=== PATIENT | male | born 1945 | race Caucasian/White ===

== ENCOUNTER 2018-02-07 06:07 | Inpatient (IN) | payer OTHER ==
[2018-01-08 10:20] VITALS: BMI 35.4
--- NOTE | 2018-02-06 17:56 | HP ---
Admitting History and Physical - Admission Chief Complaint: Right knee osteoarthritis x years History of Present Illness: 73 year old male presents regarding his right knee. Longstanding history of right knee osteoarthritis. He complains of pain, limited ROM, difficulty ambulating and difficulty with activities of daily living. Patient has failed conservative treatment measures including PO medication, activity modification, exercise programs and injections. At this point, patient wishes to proceed with surgical intervention - right total knee arthroplasty, MAKOplasty. History Source: Patient - Past Medical History Cardiovascular: Yes: Hyperlipdemia Gastrointestinal: Yes: GERD Psych: Yes: Depression Musculoskeletal: Yes: Osteoarthritis - Past Surgical History Additional Past Surgical History: see written history & physical. - Advance Directives Advance Directives: Yes: Health Care Proxy - Smoking History Smoking history: Former smoker Have you smoked in the past 12 months: No If you are a former smoker, when did you quit?: 1990S - Alcohol/Substance Use Hx Alcohol Use: Yes (3X WKLY) Home Medications - Allergies Allergies/Adverse Reactions: Allergies Allergy/AdvReac Type Severity Reaction Status Date / Time Iodinated Contrast- Oral and Allergy Intermediate Hives Verified 02/07/18 06:51 IV Dye No Known Drug Allergies Allergy Verified 02/07/18 06:51 - Home Medications Home Medications: Ambulatory Orders Atorvastatin Ca [Lipitor] 10 mg PO DAILY 01/08/18 Fluoxetine HCl [Prozac] 40 mg PO DAILY 01/08/18 Hydroxyzine HCl 25 mg PO HS PRN 01/08/18 Ibuprofen/Diphenhydramine Cit [Advil Pm Caplet] 1 each PO HS 01/08/18 Pantoprazole Sodium 40 mg PO BID 01/08/18 Review of Systems - Review of Systems Musculoskeletal: reports: Crepitus (right knee), Decreased ROM (right knee), Joint Pain (right knee), Joint Swelling (right knee) Physical Examination Constitutional: Yes: Well Nourished, No Distress Eyes: Yes: Conjunctiva Clear HENT: Yes: Atraumatic, Normocephalic Neck: Yes: Supple Cardiovascular: Yes: Regular Rate and Rhythm Respiratory: Yes: Regular Gastrointestinal: Yes: Soft ...Rectal Exam: Yes: Deferred Musculoskeletal: Yes: Joint Stiffness (right knee), Joint Swelling (right knee) Assessment/Plan 73 year old male presents regarding his right knee. Longstanding history of right knee osteoarthritis. He complains of pain, limited ROM, difficulty ambulating and difficulty with activities of daily living. Patient has failed conservative treatment measures including PO medication, activity modification, exercise programs and injections. At this point, patient wishes to proceed with surgical intervention - right total knee arthroplasty, MAKOplasty. Pros, cons, risks, benefits and alternatives of a right total knee arthroplasty, MAKOplasty - were discussed with the patient at length. Patient confirms his understanding and consents to proceed with a right total knee arthroplasty, MAKOplasty.
[~2018-02-07 06:07] MED LIST: CEFAZOLIN 2 GM in DEXTROSE 5%-WATER - 50 ML IVPB ONE; CELECOXIB 200 MG CAPSULE PO ONE; GABAPENTIN 300 MG CAPSULE (FP) PO ONE; PANTOPRAZOLE 40 MG TABLET (FP) PO ONE; ROPIVICAINE 0.2%/MORPH PF/KETOROLAC - 51ML DISP.SYRINGE IA ONE; TRANEXAMIC ACID 1000 MG/10 ML VIAL IVPUSH ONE; oxyCODONE HCL 10 MG SUSTAINED ACTING TABLET PO ONE
[2018-02-07] MEDS ORDERED: PANTOPRAZOLE 40 MG TABLET (FP) ONE (06:22)
[2018-02-07] MEDS ORDERED: GABAPENTIN 300 MG CAPSULE (FP) ONE (06:22)
[2018-02-07] MEDS ORDERED: oxyCODONE HCL 10 MG SUSTAINED ACTING TABLET ONE (06:22)
[2018-02-07] MEDS ORDERED: CELECOXIB 200 MG CAPSULE ONE (06:23)
[2018-02-07] MEDS ORDERED: MIDAZOLAM HCL 2 MG/2 ML SINGLE DOSE VIAL ONE ×2 (07:03)
[2018-02-07] MEDS ORDERED: BUPIVACAINE LIPOSOME/PF (EXPAREL) 266 MG/20 ML VIAL ONE (07:13)
[2018-02-07] MEDS ORDERED: DEXAMETHASONE SOD PHOSPHATE/PF 10 MG/ML SDV ONE (07:13)
[2018-02-07] MEDS ORDERED: LIDOCAINE HCL/PF 2% SDV 5ML VIAL ONE (07:47)
[2018-02-07] MEDS ORDERED: PROPOFOL 20 ML ONE ×7 (07:48→11:14)
[2018-02-07] MEDS ORDERED: ONDANSETRON 4 MG/2 ML VIAL IVPUSH PRN ×2 (08:01→12:00)
[2018-02-07] MEDS ORDERED: oxyCODONE HCL 5 MG TABLET PO PRN ×2 (08:01)
[2018-02-07] MEDS ORDERED: ceFAZolin SODIUM 1 GM VIAL ONE (08:26)
[2018-02-07] MEDS ORDERED: DEXAMETHASONE SOD PHOSPHATE 4 MG/1 ML VIAL ONE (08:27)
[2018-02-07] MEDS ORDERED: ONDANSETRON 4 MG/2 ML VIAL ONE ×2 (08:27→12:46)
[2018-02-07] MEDS ORDERED: TRANEXAMIC ACID 1000 MG/10 ML VIAL ONE (08:29)
[2018-02-07] MEDS ORDERED: ePHEDrine SULFATE 50 MG/1 ML AMPULE ONE (08:37)
[2018-02-07] MEDS ORDERED: METOPROLOL TARTRATE 5 MG/5 ML VIAL ONE (09:12)
[2018-02-07] MEDS ORDERED: VANCOMYCIN 1,000 MG VIAL (RESTRICTED TO ID ONLY) IVPB ONE ×2 (09:19→11:34)
[2018-02-07] MEDS ORDERED: TRANEXAMIC ACID 1000 MG/10 ML VIAL IVPB ONE ×2 (09:20→11:34)
[2018-02-07] MEDS ORDERED: ROPIVICAINE 0.2%/MORPH PF/KETOROLAC - 51ML DISP.SYRINGE IA ONE ×2 (09:23→11:34)
[2018-02-07] MEDS ORDERED: hydrOXYzine HCL 25 MG TABLET (FP) PO PRN (11:55)
[2018-02-07] MEDS ORDERED: MAG HYDROX/AL HYDROX/SIMETH 30 ML UNIT-DOSE CUP PO PRN (12:00)
[2018-02-07] MEDS ORDERED: LACTATED RINGERS SOLUTION 1,000 ML IV SCH (12:00)
[2018-02-07] MEDS ORDERED: MAGNESIUM HYDROX 2400MG/30ML ORAL SUSPENSION 30 ML CUP PO PRN (12:00)
[2018-02-07] MEDS ORDERED: KETOROLAC TROMETHAMINE 30 MG/1 ML VIAL ONE (12:07)
[2018-02-07] MEDS ORDERED: ACETAMINOPHEN INJECTION 100 ML IVPB ONE (12:08)
[2018-02-07] MEDS ORDERED: traMADol HCL 50 MG TABLET ONE (12:08)
[2018-02-07] MEDS ORDERED: ACETAMINOPHEN 1000 MG/100 ML VIAL (NON FORMULARY) IVPB ONE ×2 (12:10→12:40)
[2018-02-07] MEDS ORDERED: ONDANSETRON 4 MG/2 ML VIAL IVPUSH ONE (12:45)
[2018-02-07] MEDS ORDERED: traMADol HCL 50 MG TABLET PO ONE (13:00)
--- NOTE | 2018-02-07 15:52 | OP ---
Operative Note - Note: Operative Date: 02/07/18 Pre-Operative Diagnosis: Right knee OA Operation: Right TKA Post-Operative Diagnosis: Same as Pre-op Surgeon: Fransico Greco Yarn Twister: Estelle Combs Anesthesia: Spinal Estimated Blood Loss (mls): 200
[2018-02-07] MEDS: traMADol HCL 50 MG TABLET PO SCH ×2 (18:24→20:24)
[2018-02-07] MEDS: KETOROLAC TROMETHAMINE 30 MG/1 ML VIAL IVPUSH SCH ×2 (18:24→20:24)
[2018-02-07] MEDS: CEFAZOLIN 2 GM/D5W 2 GM/50 ML ML IVPB SCH (18:25)
[2018-02-07] MEDS ORDERED: DEXAMETHASONE SOD PHOSPHATE 10 MG/1 ML VIAL IVPB ONE (20:00)
[2018-02-07] MEDS: LACTATED RINGERS SOLUTION 1,000 ML IV SCH (20:23)
[2018-02-07] MEDS: oxyCODONE HCL 10 MG SUSTAINED ACTING TABLET PO SCH ×2 (20:23→21:44)
[2018-02-07] MEDS: ACETAMINOPHEN 325 MG TABLET (FP) PO SCH (20:27)
[2018-02-07] MEDS: CELECOXIB 200 MG CAPSULE PO SCH (21:43)
[2018-02-07] MEDS: PANTOPRAZOLE 40 MG TABLET (FP) PO SCH (21:43)
[2018-02-07] MEDS: ASCORBIC ACID 500 MG TABLET (FP) PO SCH (21:45)
[2018-02-07] MEDS: SENNOSIDES/DOCUSATE COMBO (SENNA PLUS) TABLET (UD) PO SCH (21:45)
[2018-02-07] MEDS: GABAPENTIN 300 MG CAPSULE (FP) PO SCH (21:46)
[2018-02-08] MEDS: traMADol HCL 50 MG TABLET PO SCH ×4 (00:17→17:52)
[2018-02-08] MEDS: KETOROLAC TROMETHAMINE 30 MG/1 ML VIAL IVPUSH SCH ×2 (00:18→06:38)
[2018-02-08] MEDS: ACETAMINOPHEN 325 MG TABLET (FP) PO SCH ×4 (01:58→20:53)
[2018-02-08] MEDS: CEFAZOLIN 2 GM/D5W 2 GM/50 ML ML IVPB SCH (01:58)
[2018-02-08 08:19] LABS: HEMATOCRIT 36.8 % (35.4-49); HEMOGLOBIN 12.6 GM/dl (11.7-16.9); MCHC 34.3 g/dl (32.0-35.9); MEAN CELL VOLUME 84.7 fl (80-96); MEAN PLT VOLUME 8.4 fl (7.5-11.1); PLATELET COUNT 231 K/MM3 (134-434); RBC 4.35 M/mm3 (4.00-5.60); RDW 13.4 % (11.9-15.9); WHITE BLOOD COUNT 13.3 K/mm3 (4.0-10.8)
[2018-02-08 08:29] LABS: ANION GAP 9 (8-16); BLOOD UREA NITROGEN 29 mg/dl (7-18); CALCIUM 8.8 mg/dl (8.4-10.2); CHLORIDE 101 mmol/L (98-107); CO2 25 mmol/L (22-28); CREATININE 1.4 mg/dl (0.6-1.3); GLUCOSE,RANDOM 162 mg/dl (74-106); POTASSIUM 4.8 mmol/L (3.5-5.1); SODIUM 135 mmol/L (136-145)
[2018-02-08] MEDS: PANTOPRAZOLE 40 MG TABLET (FP) PO SCH ×2 (09:41→21:41)
[2018-02-08] MEDS: ASCORBIC ACID 500 MG TABLET (FP) PO SCH ×2 (09:41→21:41)
[2018-02-08] MEDS: FLUoxetine HCL 20 MG CAPSULE (FP) PO SCH (09:41)
[2018-02-08] MEDS: SENNOSIDES/DOCUSATE COMBO (SENNA PLUS) TABLET (UD) PO SCH ×2 (09:42→21:41)
[2018-02-08] MEDS: MULTIVITAMINS (DAILY MVI) TABLET (FP) PO SCH (09:42)
[2018-02-08] MEDS: GABAPENTIN 300 MG CAPSULE (FP) PO SCH ×2 (09:43→21:41)
[2018-02-08] MEDS: CELECOXIB 200 MG CAPSULE PO SCH ×2 (09:43→21:41)
[2018-02-08] MEDS: ASPIRIN 325 MG TABLET PO SCH (09:44)
[2018-02-08] MEDS: ATORVASTATIN CA 10 MG TABLET (FP) PO SCH (09:44)
[2018-02-08] MEDS: oxyCODONE HCL 10 MG SUSTAINED ACTING TABLET PO SCH ×2 (09:44→21:41)
[2018-02-08] MEDS ORDERED: PATIENT'S OWN MEDICATION (NON-FORMULARY) (Fluoxetine Hcl [Prozac] 40 MG) PO SCH (10:00)
--- NOTE | 2018-02-08 10:26 | PN ---
Progress Note (short form) - Note Progress Note: 73M POD1 s/p R TKR under spinal anesthetic with peripheral nerve blocks for post operative pain relief. Pt states that pain is well controlled and reports no anesthetic complications. AVSS. Motor and sensory function intact in bilateral lower extremities. Continue current regimen.
--- NOTE | 2018-02-08 18:35 | PN ---
Progress Note (short form) - Note Progress Note: Pt seen and examined. Doing well. AVSS Gen: NAD RLE: c/d/i, NVID A/P s/p R TKA PT/OOB D/C home Sunday
[2018-02-09] MEDS: traMADol HCL 50 MG TABLET PO SCH ×3 (00:04→13:38)
[2018-02-09] MEDS: ACETAMINOPHEN 325 MG TABLET (FP) PO SCH ×3 (03:18→17:03)
[2018-02-09] MEDS: ASPIRIN 325 MG TABLET PO SCH (08:00)
[2018-02-09 09:12] LABS: HEMOGLOBIN 11.2 GM/dl (11.7-16.9); MCH 29.1 pg (25.7-33.7); MCHC 33.9 g/dl (32.0-35.9); MEAN CELL VOLUME 85.8 fl (80-96); MEAN PLT VOLUME 8.4 fl (7.5-11.1); PLATELET COUNT 208 K/MM3 (134-434); RBC 3.85 M/mm3 (4.00-5.60); RDW 13.9 % (11.9-15.9); WHITE BLOOD COUNT 9.3 K/mm3 (4.0-10.8)
[2018-02-09] MEDS: LACTATED RINGERS SOLUTION 1,000 ML IV SCH (09:57)
[2018-02-09] MEDS: FLUoxetine HCL 20 MG CAPSULE (FP) PO SCH (09:59)
[2018-02-09] MEDS: SENNOSIDES/DOCUSATE COMBO (SENNA PLUS) TABLET (UD) PO SCH (10:00)
[2018-02-09] MEDS: ATORVASTATIN CA 10 MG TABLET (FP) PO SCH (10:01)
[2018-02-09] MEDS: ASCORBIC ACID 500 MG TABLET (FP) PO SCH (10:01)
[2018-02-09] MEDS: GABAPENTIN 300 MG CAPSULE (FP) PO SCH (10:02)
[2018-02-09] MEDS: oxyCODONE HCL 10 MG SUSTAINED ACTING TABLET PO SCH (10:02)
[2018-02-09] MEDS: CELECOXIB 200 MG CAPSULE PO SCH (10:02)
[2018-02-09] MEDS: PANTOPRAZOLE 40 MG TABLET (FP) PO SCH (10:03)
[2018-02-09] MEDS: MULTIVITAMINS (DAILY MVI) TABLET (FP) PO SCH (10:03)
--- NOTE | 2018-02-09 12:12 | DS ---
Physical Examination Vital Signs: Vital Signs Temperature 98.0 F 02/09/18 06:00 Pulse Rate 66 02/09/18 06:00 Respiratory Rate 19 02/09/18 06:00 Blood Pressure 129/58 02/09/18 06:00 O2 Sat by Pulse Oximetry (%) 95 02/09/18 08:38 Labs: CBC, BMP 02/09/18 07:45 02/08/18 07:47 Discharge Summary Reason For Visit: RIGHT KNEE OSTEOARTHRITIS Current Active Problems Osteoarthritis of right knee (Acute) Procedures: Principal: right navi TKA Hospital Course: Admitted for elective surgery. Procedure performed without complications. Pt received postoperative antibiotic prophylaxis and DVT ppx. Ambulated with physical therapy. Stable for discharge home with outpatient followup. Condition: Stable - Instructions Diet, Activity, Other Instructions: Dr. Greco - Knee Replacement Instructions Keep the Aquacel dressing on until removed by Dr. Greco in 10-14 days - it is antibacterial and waterproof and you can shower with it on. Call the office for a follow-up appointment with Dr. Greco in 10-14 days. Take one Aspirin 325mg daily for 6 weeks to prevent blood clots in your legs. Take Cephalexin (antibiotic) 3x/day for 10 days to help prevent skin infection. Take a multivitamin, stool softener, and extra Vitamin C supplement daily. For pain: *Mild pain (1-3/10): Take 1 Tramadol tablet every 4 hours as needed. Moderate pain (4-6/10): Take 1 Tramadol tablet and 1 Percocet tablet every 4 hours as needed. Severe pain (7-10/10): Take 1 Tramadol tablet and 2 Percocet tablets every 4 hours as needed. Activity: You can put as much weight on the operative leg as you want. Right after you get home, there will be a physical therapist coming to your house to help you walk around and bend/straighten your knee. After your follow-up appointment, you will be sent for more intensive outpatient physical therapy which will include machines and equipment that the home therapist cannot bring to your house. Always use a walker or cane for balance and to prevent falls. Expect to see swelling/bruising from the operative site all the way down to your toes. Wear the compression stocking on the operative side during the day to minimize how much swelling there is in your foot/ankle. Don't wear the stocking at night. You don't have to wear a stocking on the other side. Disposition: VNS/HOME HEALTH CARE - Home Medications Comprehensive Discharge Medication List: Ambulatory Orders Atorvastatin Ca [Lipitor] 10 mg PO DAILY 01/08/18 Fluoxetine HCl [Prozac] 40 mg PO DAILY 01/08/18 Hydroxyzine HCl 25 mg PO HS PRN 01/08/18 Pantoprazole Sodium 40 mg PO BID 01/08/18 Ascorbic Acid [Vitamin C -] 500 mg PO BID tablet 02/09/18 Aspirin [ASA -] 325 mg PO DAILY@0800 tablet 02/09/18 Cephalexin Monohydrate [Keflex -] 500 mg PO TID #30 capsule 02/09/18 Multivitamins [Multivit ([facility] Formulary)] 1 tab PO DAILY tab 02/09/18 Oxycodone HCl/Acetaminophen [Percocet 5-325 mg Tablet] 1 - 2 tab PO Q4H PRN #60 tablet MDD 10 02/09/18 Sennosides/Docusate Sodium [Pericolace -] 2 tablet PO BID tablet 02/09/18 traMADol HCL [Ultram -] 50 mg PO Q4H PRN #42 tablet MDD 6 02/09/18
[2018-02-09 14:51] VITALS: BP 109/54; PULSE 87; TEMP 98.2
--- NOTE | 2018-02-12 11:39 | PATH ---
Surgical Pathology Report Patient Name: CLAUDE BYRNE Med. Rec. #: [id number] /Age/Gender: 1945 (Age: 73) / M Account: [id number] Location: [facility] Taken: 02/07/2018 Received: 02/07/2018 Reported: 02/12/2018 Physicians: Fransico Greco M.D. Specimen(s) Received RIGHT KNEE BONE Clinical History Right knee osteoarthritis Final Diagnosis KNEE BONE, RIGHT, TOTAL KNEE REPLACEMENT: DEGENERATIVE JOINT DISEASE. Electronically Signed Lakeisha Cardoso M.D. Gross Description Received in formalin labeled "right knee bone," is a 16.0 x 13.0 x 1.8 cm aggregate of multiple portions of bone and soft tissue. The tibial plateau measures 8.0 x 5.6 x 1.6 cm. There are multiple areas of eburnation present, measuring up to 2.3 cm in greatest dimension. The remaining articular surfaces are tena-brown and diffusely granular. The underlying trabecular bone is yellow and hard. Fire Crew Worker sections are submitted in one cassette, following decalcification. 02/08/2018 [facility]02/08/2018
--- NOTE | 2018-04-12 10:53 | SPEC ---
DATE OF OPERATION: 02/07/2018 PREOPERATIVE DIAGNOSIS: Right knee osteoarthritis. POSTOPERATIVE DIAGNOSIS: Right knee osteoarthritis. PROCEDURE: Right total knee replacement with MAKOplasty robotic navigation. ATTENDING: Vasu Funes MD SOFTWARE ENGINEER BACKEND: AVRIL Miller ANESTHESIA: Spinal plus sedation. ESTIMATED BLOOD LOSS: 200 mL. COMPLICATIONS: None. DISPOSITION: The patient was transferred to the PACU in stable condition. IMPLANTS USED: Neil Triathlon size 7 femoral component, size 6 tibial component, 35-mm patellar component, 13-mm total stabilized polyethylene component. INDICATIONS: This is a 73-year-old male who presents to the office complaining of right knee pain. He was seen and examined by Dr. Funes and diagnosed with severe right knee osteoarthritis. The patient was initially nonoperatively with injections, medications, and physical therapy but continued to have severe pain and ambulatory dysfunction. He was therefore indicated for a right total knee replacement with MAKOplasty robotic navigation. The risks, benefits, and alternatives of the procedure were explained to the patient in great detail, and he elected to proceed with the surgery. On the day of surgery, the patient was taken to the operating room and placed on the OR table. Spinal anesthesia was administered by the anesthesiologist. The patient was then positioned supine on the table, and all bony prominences were padded. The knee was then prepped and draped in the usual sterile fashion and intravenous antibiotics were given for infection prophylaxis. A surgical time-out was then performed with the team, and the patients identity, procedure, side, availability of implants, and the administration of antibiotics was confirmed. With the knee flexed, a midline incision was made and carried down through the subcutaneous fat to the underlying retinaculum. A medial parapatellar arthrotomy was performed. This was followed by a subperiosteal dissection of the tissue off the proximal, medial tibia. A portion of fat pad was removed from under the patellar tendon, and a small portion of fat was excised off the distal supracondylar femur. Electrocautery and an Aquamantys bipolar sealing device were used to achieve hemostasis. The knee was then flexed further and the anterior horn of the lateral meniscus was released from the midline. Next, the anterior and posterior cruciate ligaments were transected. Grade 4 changes were noted diffusely throughout the knee. Femoral and tibial checkpoints were then placed in the appropriate location using a mallet. Two parallel bicortical self-drilling pins were placed in the tibial diaphysis after making stab incisions and bluntly dissecting down to bone. Two pins were then placed in the distal supracondylar femur. The Accela navigation arrays were then attached to both the femoral and tibial pins and the lower extremity was then registered to the robotic navigation device using various joint movements, as well as inputting several dozen reference points. The knee was then taken through a full range of motion with a corrective force applied. Alignment in varus/valgus as well as flexion/extension and soft tissue balance was measured in various positions. The navigation device showed a numerical and graphic representation of the soft tissue balance. The components were repositioned virtually using the software until optimal soft tissue balance was achieved on screen. Once this was accomplished, the final plan was saved and sent to the robot. Self-retaining retractors were then placed at the joint line for exposure and protection of the collateral ligaments. The robot was brought into the sterile field and registered with the navigation device. The robotic arm with attached oscillating saw blade was then used to perform femoral and tibial bone cuts as per the saved software plan. The femoral box cut was made using the appropriately sized manual cutting guide. The knee was then irrigated. Trial components were placed and the knee was taken through a full range of motion to assess soft tissue balance and alignment. The range of motion was found to be excellent and the soft tissue balance was optimal and according to plan. The knee was then put into extension and the patella everted. The synovium around the patella was circumscribed with electrocautery. A caliper was used to measure the patellar thickness and a saw was then used to resect the patella at the chondro-osseous junction. The cut surface was then sized and drilled for the appropriate patellar button, with care taken to medialize it. A trial patella was then placed and the knee was again taken through a full range of motion. The knee was found to have both good balance and good patellar tracking. All of the components were removed except the tibial base plate. The appropriate instrumentation was used to drill and punch the proximal tibia for the keel of the final component. All bony surfaces were then cleaned with pulsatile lavage and dried. Bone cement was then prepared on the back table, and final components were cemented in place in the usual fashion. Extruded cement was removed. The polyethylene trial was placed, the knee was put into extension, and axial pressure was applied for compression while the cement hardened. The patellar button was similarly cemented into place. Once the cement had hardened, the knee was taken through a full range of motion to assess stability, balance, and patellar tracking. This was found to be optimal and the trial polyethylene was exchanged for the appropriately sized real implant. The wound was then thoroughly irrigated with normal saline. A 3-minute dilute Betadine lavage was performed. The knee was again irrigated using a pulsatile lavage device. A periarticular injection was used to locally infiltrate the capsular tissues surrounding the implant and prosthesis. Then No. 1 Polysorb and 0 VLoc 180 barbed sutures were used to close the arthrotomy. Then No. 1 Polysorb and 2-0 VLoc 90 sutures were used in the subcutaneous tissues. Then 4-0 undyed Vicryl and Dermabond skin adhesive was used to close the stab incisions made for the navigation pins. The skin was closed using both 3-0 VLoc 90 suture in a running subcuticular fashion and Dermabond skin adhesive. Once this was completed a sterile Aquacel dressing and compressive Selvin-wrap was applied. The patient was then awakened and taken to the PACU in stable condition. VASU FUNES M.D. [id number]
== END 2018-02-09 17:10 | disposition home health service (06) | DRG 302 ==
LOC: FM/S 06:07
PROVIDERS: ADMIT Student in an Organized Health Care Education/Training Program; ATTEND Student in an Organized Health Care Education/Training Program
PROC: 8E0Y0CZ Robotic Assisted Procedure of Lower Extremity, Open Approach (ICD-10-PCS; 2018-02-07)
PROC: 0SRC0JZ Replacement of Right Knee Joint with Synthetic Substitute, Open Approach (ICD-10-PCS; principal; 2018-02-07 08:57)
DX: M17.11 Unilateral primary osteoarthritis, right knee (principal); K21.9 Gastro-esophageal reflux disease without esophagitis; E78.5 Hyperlipidemia, unspecified; F32.9 Major depressive disorder, single episode, unspecified; Z87.891 Personal history of nicotine dependence
CPT/HCPCS: 36415; 73560-TC-RT-FY; 80048; 85027; 88304-TC; 88311-TC; 94760; 97116-GP; 97162-GP; J0131; J1100

== ENCOUNTER 2019-02-20 06:08 | Inpatient (IN) | payer OTHER ==
[2019-02-13 12:05] VITALS: BMI 34.9
[~2019-02-20 06:08] MED LIST changes: -ROPIVICAINE 0.2%/MORPH PF/KETOROLAC - 51ML DISP.SYRINGE IA ONE
[2019-02-20] MEDS ORDERED: PANTOPRAZOLE 40 MG TABLET (FP) ONE (06:29)
[2019-02-20] MEDS ORDERED: oxyCODONE HCL 10 MG SUSTAINED ACTING TABLET ONE (06:29)
[2019-02-20] MEDS ORDERED: GABAPENTIN 300 MG CAPSULE (FP) ONE (06:30)
[2019-02-20] MEDS ORDERED: CELECOXIB 200 MG CAPSULE ONE (06:30)
[2019-02-20] MEDS ORDERED: MIDAZOLAM HCL 2 MG/2 ML SINGLE DOSE VIAL ONE ×3 (07:17→10:12)
[2019-02-20] MEDS ORDERED: BUPIVACAINE LIPOSOME/PF (EXPAREL) 266 MG/20 ML VIAL ONE (07:18)
[2019-02-20] MEDS ORDERED: SODIUM CHLORIDE 0.9% P/F 10 ML VIAL IJ ONE (07:18)
[2019-02-20] MEDS ORDERED: TRANEXAMIC ACID 1000 MG/10 ML VIAL ONE ×2 (07:22→08:42)
[2019-02-20] MEDS ORDERED: ceFAZolin SODIUM 1 GM VIAL ONE ×2 (07:22→08:36)
[2019-02-20] MEDS ORDERED: VANCOMYCIN 1,000 MG VIAL (RESTRICTED TO ID ONLY) ONE (07:22)
[2019-02-20] MEDS ORDERED: SUCCINYLCHOLINE CHLORIDE 200 MG/10 ML SYRINGE ONE (07:28)
[2019-02-20] MEDS ORDERED: PROPOFOL 20 ML ONE (07:28)
--- NOTE | 2019-02-20 07:51 | HP ---
Admitting History and Physical - Admission Chief Complaint: left knee osteoarthritis x years History of Present Illness: 74 year old presents in regard to their left knee. Longstanding history of left knee osteoarthritis. Patient complains of pain, limited ROM, difficulty ambulating and difficulty completing ADLs. Patient has failed conservative treatment measures including PO medications, injections, exercise programs and activity modification. At this point, patient wishes to proceed with surgical intervention, a left total knee arthroplasty - MAKOplasty. - Past Medical History Cardiovascular: Yes: Hyperlipdemia Gastrointestinal: Yes: GERD Psych: Yes: Depression Musculoskeletal: Yes: Osteoarthritis - Past Surgical History Additional Past Surgical History: Right total knee replacement See written history and physical for additional surgical history. - Smoking History Smoking history: Former smoker Have you smoked in the past 12 months: No If you are a former smoker, when did you quit?: 1990S - Alcohol/Substance Use Hx Alcohol Use: No Home Medications - Allergies Allergies/Adverse Reactions: Allergies Allergy/AdvReac Type Severity Reaction Status Date / Time No Known Drug Allergies Allergy Verified 02/13/19 11:54 - Home Medications Home Medications: Ambulatory Orders Atorvastatin Ca [Lipitor] 10 mg PO DAILY 01/08/18 Fluoxetine HCl [Prozac] 40 mg PO DAILY 01/08/18 Hydroxyzine HCl 25 mg PO HS PRN 01/08/18 Pantoprazole Sodium 40 mg PO DAILY 01/08/18 Multivitamins [Multivit ([facility] Formulary)] 1 tab PO DAILY tab 02/09/18 Ferrous Sulfate 325 mg PO DAILY 02/13/19 traZODone HCL [Trazodone HCl] 50 mg PO HS PRN 02/13/19 Review of Systems - Review of Systems Musculoskeletal: reports: Crepitus (right knee), Decreased ROM (right knee), Joint Pain (right knee), Joint Swelling (right knee) Physical Examination Vital Signs: Vital Signs Temperature 98.4 F 02/20/19 06:53 Pulse Rate 64 02/20/19 06:53 Respiratory Rate 16 02/20/19 06:53 Blood Pressure 129/74 02/20/19 06:53 O2 Sat by Pulse Oximetry (%) 96 02/20/19 06:53 Constitutional: Yes: Well Nourished, No Distress Eyes: Yes: Conjunctiva Clear HENT: Yes: Atraumatic Neck: Yes: Supple Cardiovascular: Yes: Regular Rate and Rhythm Respiratory: Yes: Regular Gastrointestinal: Yes: Soft ...Rectal Exam: Yes: Deferred Musculoskeletal: Yes: Joint Stiffness (right knee), Joint Swelling (right knee) Assessment/Plan 74 year old presents in regard to their left knee. Longstanding history of left knee osteoarthritis. Patient complains of pain, limited ROM, difficulty ambulating and difficulty completing ADLs. Patient has failed conservative treatment measures including PO medications, injections, exercise programs and activity modification. At this point, patient wishes to proceed with surgical intervention, a left total knee arthroplasty - MAKOplasty. Pros, cons, risks benefits and alternatives of a left total knee arthroplasty, MAKOplasty were discussed with the patient at length. Patient confirms their understanding and consents to proceed with a left total knee arthroplasty, MAKOplasty.
[2019-02-20] MEDS ORDERED: EPHEDRINE SULFATE/0.9% NACL/PF 50 MG/10 ML SYRINGE NR ONE (09:37)
[2019-02-20] MEDS ORDERED: TRANEXAMIC ACID 1000 MG/10 ML VIAL IVPUSH ONE (11:07)
[2019-02-20] MEDS ORDERED: VANCOMYCIN 1,000 MG VIAL (RESTRICTED TO ID ONLY) IVPB ONE (11:07)
[2019-02-20] MEDS ORDERED: ONDANSETRON 4 MG/2 ML VIAL IVPUSH PRN ×2 (11:12→12:05)
[2019-02-20] MEDS ORDERED: oxyCODONE HCL 5 MG TABLET PO PRN (11:13)
[2019-02-20] MEDS ORDERED: LACTATED RINGERS SOLUTION 1,000 ML IV SCH ×2 (11:15→12:15)
[2019-02-20] MEDS ORDERED: KETOROLAC TROMETHAMINE 30 MG/1 ML VIAL ONE (11:59)
[2019-02-20] MEDS ORDERED: ACETAMINOPHEN INJECTION 100 ML IVPB ONE (11:59)
[2019-02-20] MEDS ORDERED: traMADol HCL 50 MG TABLET ONE (11:59)
[2019-02-20] MEDS ORDERED: ACETAMINOPHEN 325 MG TABLET (FP) PO SCH (12:00)
[2019-02-20] MEDS ORDERED: traZODone HCL 50 MG TABLET (FP) PO PRN (12:03)
[2019-02-20] MEDS ORDERED: hydrOXYzine HCL 25 MG TABLET (FP) PO PRN (12:03)
[2019-02-20] MEDS ORDERED: MAGNESIUM HYDROX 2400MG/30ML ORAL SUSPENSION 30 ML CUP PO PRN (12:05)
[2019-02-20] MEDS ORDERED: MAG HYDROX/AL HYDROX/SIMETH 30 ML UNIT-DOSE CUP PO PRN (12:05)
[2019-02-20] MEDS: traMADol HCL 50 MG TABLET PO SCH ×3 (12:11→23:36)
[2019-02-20] MEDS ORDERED: ACETAMINOPHEN 1000 MG/100 ML VIAL (NON FORMULARY) IVPB ONE (12:12)
[2019-02-20] MEDS: KETOROLAC TROMETHAMINE 30 MG/1 ML VIAL IVPUSH SCH ×3 (12:15→23:37)
--- NOTE | 2019-02-20 12:17 | OP ---
Operative Note - Note: Operative Date: 02/20/19 Pre-Operative Diagnosis: Left knee OA Operation: Left TICO TKA Post-Operative Diagnosis: Same as Pre-op Surgeon: Fransico Greco Basket Operator: Estelle Combs Anesthesia: Spinal Estimated Blood Loss (mls): 150
[2019-02-20] MEDS ORDERED: ONDANSETRON 4 MG/2 ML VIAL ONE (12:42)
[2019-02-20] MEDS ORDERED: oxyCODONE HCL 5 MG TABLET ONE (12:45)
[2019-02-20] MEDS: oxyCODONE HCL 5 MG TABLET PO PRN (12:48)
--- NOTE | 2019-02-20 12:49 | SPEC ---
DATE OF OPERATION: 02/20/2019 PREOPERATIVE DIAGNOSIS: Left knee osteoarthritis. POSTOPERATIVE DIAGNOSIS: Left knee osteoarthritis. PROCEDURE: Left total knee replacement with MAKOplasty robotic navigation. ATTENDING: Vasu Funes MD COMMUNITY PLANNING TECHNICIAN: AVRIL Miller ANESTHESIA: Spinal plus sedation. ESTIMATED BLOOD LOSS: 150 mL COMPLICATIONS: None. DISPOSITION: The patient was transferred to the PACU in stable condition. IMPLANTS USED: Lonetree Triathlon size 7 tibial component, size 7 femoral component, 38-mm patellar component, 13-mm total stabilized polyethylene component. INDICATIONS: This is a 74-year-old male who is a long-term patient of ours, who was diagnosed with bilateral knee osteoarthritis. He was initially treated conservatively, but continued to have severe pain and ambulatory dysfunction. He underwent a right total knee replacement in January 2018, and did very well postoperatively and had such a favorable result that he elected to proceed with a left total knee replacement rather than continue nonoperative treatments for arthritis. The risks, benefits and alternatives to the procedure were explained to the patient in great detail and he elects to proceed with the surgery. DESCRIPTION OF PROCEDURE: On the day of surgery, the patient was taken to the operating room and placed on the OR table. Spinal anesthesia was administered by the anesthesiologist. The patient was then positioned supine on the table and all bony prominences were padded. The knee was then prepped and draped in the usual sterile fashion and intravenous antibiotics were given for infection prophylaxis. A surgical timeout was then performed with the team, and the patients identity, procedure, side, availability of implants, and the administration of antibiotics was confirmed. With the knee flexed, a midline incision was made and carried down through the subcutaneous fat to the underlying retinaculum. A medial parapatellar arthrotomy was performed. This was followed by a subperiosteal dissection of the tissue off the proximal, medial tibia. A portion of fat pad was removed from under the patellar tendon, and a small portion of fat was excised off the distal supracondylar femur. Electrocautery and an Aquamantys bipolar sealing device were used to achieve hemostasis. The knee was then flexed further and the anterior horn of the lateral meniscus was released from the midline. Next, the anterior and posterior cruciate ligaments were transected. Grade 4 changes were noted diffusely throughout the knee. Femoral and tibial checkpoints were then placed in the appropriate location using a mallet. Two parallel bicortical self-drilling pins were placed in the tibial diaphysis after making stab incisions and bluntly dissecting down to bone. Two pins were then placed in the distal supracondylar femur. The Spiralcat navigation arrays were then attached to both the femoral and tibial pins and the lower extremity was then registered to the robotic navigation device using various joint movements, as well as inputting several dozen reference points. The knee was then taken through a full range of motion with a corrective force applied. Alignment in varus/valgus as well as flexion/extension and soft tissue balance was measured in various positions. The navigation device showed a numerical and graphic representation of the soft tissue balance. The components were repositioned virtually using the software until optimal soft tissue balance was achieved on screen. Once this was accomplished, the final plan was saved and sent to the robot. Self-retaining retractors were then placed at the joint line for exposure and protection of the collateral ligaments. The robot was brought into the sterile field and registered with the navigation device. The robotic arm with attached oscillating saw blade was then used to perform femoral and tibial bone cuts as per the saved software plan. The femoral box cut was made using the appropriately sized manual cutting guide. The knee was then irrigated. Trial components were placed and the knee was taken through a full range of motion to assess soft tissue balance and alignment. The range of motion was found to be excellent and the soft tissue balance was optimal and according to plan. The knee was then put into extension and the patella everted. The synovium around the patella was circumscribed with electrocautery. A caliper was used to measure the patellar thickness and a saw was then used to resect the patella at the chondro-osseous junction. The cut surface was then sized and drilled for the appropriate patellar button, with care taken to medialize it. A trial patella was then placed and the knee was again taken through a full range of motion. The knee was found to have both good balance and good patellar tracking. All of the components were removed except the tibial base plate. The appropriate instrumentation was used to drill and punch the proximal tibia for the keel of the final component. All bony surfaces were then cleaned with pulsatile lavage and dried. Bone cement was then prepared on the back table, and final components were cemented in place in the usual fashion. Extruded cement was removed. The polyethylene trial was placed, the knee was put into extension, and axial pressure was applied for compression while the cement hardened. The patellar button was similarly cemented into place. Once the cement had hardened, the knee was taken through a full range of motion to assess stability, balance, and patellar tracking. This was found to be optimal and the trial polyethylene was exchanged for the appropriately sized real implant. The wound was then thoroughly irrigated with normal saline. A 3-minute dilute Betadine lavage was performed. The knee was again irrigated using a pulsatile lavage device. A periarticular injection was used to locally infiltrate the capsular tissues surrounding the implant and prosthesis. Then No. 1 Polysorb and 0 V-Loc 180 barbed sutures were used to close the arthrotomy. Then No. 1 Polysorb and 2-0 V-Loc 90 sutures were used in the subcutaneous tissues. Then 4-0 undyed Vicryl and Dermabond skin adhesive was used to close the stab incisions made for the navigation pins. The skin was closed using both 3-0 V-Loc 90 suture in a running subcuticular fashion and Dermabond skin adhesive. Once this was completed a sterile Aquacel dressing and compressive Selvin-wrap was applied. The patient was then awakened and taken to the PACU in stable condition. VASU FUNES M.D. [id number]
[2019-02-20] MEDS ORDERED: LABETALOL HCL 5 MG/1 ML (100MG/20 ML VIAL) IVPUSH ONE ×2 (13:35→14:20)
[2019-02-20] MEDS ORDERED: LABETALOL HCL 5 MG/1 ML (100MG/20 ML VIAL) ONE (13:42)
[2019-02-20] MEDS: ACETAMINOPHEN 325 MG TABLET (FP) PO SCH ×2 (17:23→23:37)
[2019-02-20] MEDS: CEFAZOLIN 2 GM/D5W 2 GM/50 ML ML IVPB SCH (17:25)
[2019-02-20] MEDS ORDERED: DEXAMETHASONE SOD PHOSPHATE 10 MG/1 ML VIAL IVPB ONE (20:00)
[2019-02-20] MEDS: GABAPENTIN 300 MG CAPSULE (FP) PO SCH (21:02)
[2019-02-20] MEDS: oxyCODONE HCL 10 MG SUSTAINED ACTING TABLET PO SCH (21:02)
[2019-02-20] MEDS: SENNOSIDES/DOCUSATE COMBO (SENNA PLUS) TABLET (UD) PO SCH (21:02)
[2019-02-20] MEDS: CELECOXIB 200 MG CAPSULE PO SCH (21:02)
[2019-02-20] MEDS: ASCORBIC ACID 500 MG TABLET (FP) PO SCH (21:02)
[2019-02-21] MEDS: CEFAZOLIN 2 GM/D5W 2 GM/50 ML ML IVPB SCH (02:00)
[2019-02-21] MEDS: KETOROLAC TROMETHAMINE 30 MG/1 ML VIAL IVPUSH SCH (05:35)
[2019-02-21] MEDS: ACETAMINOPHEN 325 MG TABLET (FP) PO SCH ×3 (05:35→17:18)
[2019-02-21] MEDS: traMADol HCL 50 MG TABLET PO SCH ×3 (05:35→17:19)
[2019-02-21 07:44] LABS: HEMATOCRIT 39.3 % (35.4-49); HEMOGLOBIN 13.1 GM/dl (11.7-16.9); MCH 30.4 pg (25.7-33.7); MCHC 33.2 g/dl (32.0-35.9); MEAN CELL VOLUME 91.5 fl (80-96); MEAN PLT VOLUME 8.4 fl (7.5-11.1); PLATELET COUNT 197 K/MM3 (134-434); RDW 12.6 % (11.9-15.9); WHITE BLOOD COUNT 9.1 K/mm3 (4.0-10.8)
[2019-02-21 07:46] LABS: CALCIUM 8.3 mg/dl (8.5-10); CREATININE 1.5 mg/dl (0.55-1.3); POTASSIUM 4.6 mmol/L (3.5-5.1)
[2019-02-21] MEDS: ASPIRIN 325 MG TABLET PO SCH (08:40)
[2019-02-21] MEDS: FLUoxetine HCL 20 MG CAPSULE (FP) PO SCH (10:34)
[2019-02-21] MEDS: oxyCODONE HCL 10 MG SUSTAINED ACTING TABLET PO SCH ×2 (10:35→21:56)
[2019-02-21] MEDS: SENNOSIDES/DOCUSATE COMBO (SENNA PLUS) TABLET (UD) PO SCH ×2 (10:35→21:55)
[2019-02-21] MEDS: MULTIVITAMINS (DAILY MVI) TABLET (FP) PO SCH (10:35)
[2019-02-21] MEDS: GABAPENTIN 300 MG CAPSULE (FP) PO SCH ×2 (10:35→21:55)
[2019-02-21] MEDS: CELECOXIB 200 MG CAPSULE PO SCH (10:35)
[2019-02-21] MEDS: ASCORBIC ACID 500 MG TABLET (FP) PO SCH ×2 (10:35→21:56)
[2019-02-21] MEDS: ATORVASTATIN CA 10 MG TABLET (FP) PO SCH (10:36)
[2019-02-21] MEDS: PANTOPRAZOLE 40 MG TABLET (FP) PO SCH (10:36)
[2019-02-21] MEDS: FERROUS SO4 325 MG TABLET (FP) PO SCH (10:36)
--- NOTE | 2019-02-21 10:39 | PN ---
Progress Note (short form) - Note Progress Note: ANESTHESIA POSTOP 74 YO MALE POD#1 S/P TKA, SPINAL, PNB Patient sitting in bed reading. Pain adequately controlled. Reports feeling better this time after same surgery. No n/v. VSS, Afebrile Continue current care. Encouraged IS and active participation in PT
[2019-02-22] MEDS: ACETAMINOPHEN 325 MG TABLET (FP) PO SCH ×3 (00:28→12:05)
[2019-02-22] MEDS: traMADol HCL 50 MG TABLET PO SCH ×3 (00:29→12:05)
[2019-02-22] MEDS: oxyCODONE HCL 5 MG TABLET PO PRN (03:11)
[2019-02-22 08:13] LABS: HEMATOCRIT 33.9 % (35.4-49); HEMOGLOBIN 11.5 GM/dl (11.7-16.9); MCH 30.8 pg (25.7-33.7); MEAN CELL VOLUME 90.6 fl (80-96); MEAN PLT VOLUME 8.6 fl (7.5-11.1); PLATELET COUNT 193 K/MM3 (134-434); RBC 3.74 M/mm3 (4.00-5.60); RDW 12.8 % (11.9-15.9); WHITE BLOOD COUNT 9.4 K/mm3 (4.0-10.8)
[2019-02-22 08:25] LABS: CALCIUM 8.4 mg/dl (8.5-10); CREATININE 1.4 mg/dl (0.55-1.3); POTASSIUM 4.5 mmol/L (3.5-5.1)
[2019-02-22] MEDS: ASPIRIN 325 MG TABLET PO SCH (09:13)
[2019-02-22] MEDS: GABAPENTIN 300 MG CAPSULE (FP) PO SCH (10:32)
[2019-02-22] MEDS: ATORVASTATIN CA 10 MG TABLET (FP) PO SCH (10:32)
[2019-02-22] MEDS: FERROUS SO4 325 MG TABLET (FP) PO SCH (10:32)
[2019-02-22] MEDS: oxyCODONE HCL 10 MG SUSTAINED ACTING TABLET PO SCH (10:33)
[2019-02-22] MEDS: ASCORBIC ACID 500 MG TABLET (FP) PO SCH (10:34)
[2019-02-22] MEDS: MULTIVITAMINS (DAILY MVI) TABLET (FP) PO SCH (10:34)
[2019-02-22] MEDS: PANTOPRAZOLE 40 MG TABLET (FP) PO SCH (10:34)
[2019-02-22] MEDS: FLUoxetine HCL 20 MG CAPSULE (FP) PO SCH (10:34)
[2019-02-22] MEDS: SENNOSIDES/DOCUSATE COMBO (SENNA PLUS) TABLET (UD) PO SCH (10:34)
--- NOTE | 2019-02-22 10:44 | PN ---
Progress Note (short form) - Note Progress Note: Pt seen and examined Sunday evening. Doing well. AVSS Selected Entries 02/22/19 10:00 Temperature 99.0 F Respiratory 18 Rate Blood Pressure 105/60 O2 Sat by Pulse 95 Oximetry (%) Laboratory Tests 02/21/19 02/21/19 02/22/19 07:15 07:15 07:15 WBC 9.1 9.4 Hgb 13.1 11.5 L Hct 39.3 D 33.9 L Plt Count 197 193 Sodium 137 Potassium 4.6 Chloride 101 Carbon Dioxide 26 Anion Gap 10 BUN 25.0 H Creatinine 1.5 H Random Glucose 188 H 02/22/19 07:15 WBC Hgb Hct Plt Count Sodium 140 Potassium 4.5 Chloride 103 Carbon Dioxide 30 Anion Gap 7 L BUN 32.0 H Creatinine 1.4 H Random Glucose 88 Gen: NAD LLE: c/d/i, NVID A/P s/p L TICO TKA PT/OOB - WBAT LLE D/C home Sunday
--- NOTE | 2019-02-22 10:50 | DS ---
Physical Examination Vital Signs: Vital Signs Temperature 99.0 F 02/22/19 10:00 Pulse Rate 70 02/22/19 10:00 Respiratory Rate 18 02/22/19 10:00 Blood Pressure 105/60 02/22/19 10:00 O2 Sat by Pulse Oximetry (%) 95 02/22/19 10:00 Labs: CBC, BMP 02/22/19 07:15 02/22/19 07:15 Discharge Summary Reason For Visit: LEFT KNEE OSTEOARTHRITIS Current Active Problems Osteoarthritis of left knee (Acute) Procedures: Principal: left TICO TKA Hospital Course: Admitted for elective surgery. Procedure performed without complications. Pt received postoperative antibiotic prophylaxis and DVT ppx. Ambulated with physical therapy. Stable for discharge home with outpatient followup. Condition: Stable - Instructions Diet, Activity, Other Instructions: Dr. Greco - Knee Replacement Instructions Keep the Aquacel dressing on until removed by Dr. Greco in 10-14 days - it is antibacterial and waterproof and you can shower with it on. Call the office for a follow-up appointment with Dr. Greco in 10-14 days. [phone] Take one Aspirin 325mg daily for 6 weeks to prevent blood clots in your legs. Take one Pantoprazole 40mg daily for 6 weeks to protect against heartburn and ulcers. Take Cephalexin (antibiotic) 3x/day for 10 days to help prevent skin infection. Take a multivitamin, stool softener, and extra Vitamin C supplement daily. For pain: *Mild pain (1-3/10): Take 1 Tramadol tablet every 4 hours as needed. Moderate pain (4-6/10): Take 1 Tramadol tablet and 1 Percocet tablet every 4 hours as needed. Severe pain (7-10/10): Take 1 Tramadol tablet and 2 Percocet tablets every 4 hours as needed. Activity: You can put as much weight on the operative leg as you want. Right after you get home, there will be a physical therapist coming to your house to help you walk around and bend/straighten your knee. After your follow-up appointment, you will be sent for more intensive outpatient physical therapy which will include machines and equipment that the home therapist cannot bring to your house. Always use a walker or cane for balance and to prevent falls. Expect to see swelling/bruising from the operative site all the way down to your toes. Wear the compression stocking on the operative side during the day to minimize how much swelling there is in your foot/ankle. Don't wear the stocking at night. You don't have to wear a stocking on the other side. Disposition: [facility]/HOME HEALTH CARE - Home Medications Comprehensive Discharge Medication List: Ambulatory Orders Atorvastatin Ca [Lipitor] 10 mg PO DAILY 01/08/18 Fluoxetine HCl [Prozac] 40 mg PO DAILY 01/08/18 Hydroxyzine HCl 25 mg PO HS PRN 01/08/18 Multivitamins [Multivit ([facility] Formulary)] 1 tab PO DAILY tab 02/09/18 Ferrous Sulfate 325 mg PO DAILY 02/13/19 traZODone HCL [Trazodone HCl] 50 mg PO HS PRN 02/13/19 Ascorbic Acid [Vitamin C -] 500 mg PO BID tablet 02/22/19 Aspirin [ASA -] 325 mg PO DAILY@0800 tablet 02/22/19 Cephalexin Monohydrate [Keflex -] 500 mg PO TID #30 capsule 02/22/19 Oxycodone HCl/Acetaminophen [Percocet 5-325 mg Tablet] 1 - 2 tab PO Q4H PRN #60 tablet MDD 10 02/22/19 Pantoprazole Sodium 40 mg PO DAILY #40 tablet. 02/22/19 Sennosides/Docusate Sodium [Pericolace -] 2 tablet PO BID tablet 02/22/19 traMADol HCL [Ultram -] 50 mg PO Q4H PRN #60 tablet MDD 6 02/22/19
[2019-02-22 13:36] VITALS: BP 98/46; PULSE 90; TEMP 98.9
--- NOTE | 2019-02-24 16:47 | PATH ---
Surgical Pathology Report Patient Name: CLAUDE BYRNE Med. Rec. #: [id number] /Age/Gender: 1945 (Age: 74) / M Account: [id number] Location: [facility] MED-SURG Taken: 02/20/2019 Received: 02/20/2019 Reported: 02/24/2019 Physicians: Fransico Greco M.D. Specimen(s) Received LEFT KNEE BONES Clinical History Left knee osteoarthritis Final Diagnosis LEFT KNEE BONES, EXCISION: DEGENERATIVE JOINT DISEASE, LEFT KNEE. Electronically Signed Renee Mckeon M.D. Gross Description Received in formalin labeled "left knee bones," is a 12.5 x 11.0 x 2.4 cm aggregate of multiple portions of bone and soft tissue. The tibial plateau measures 8.6 x 5.3 x 1.6 cm. There is a 2.5 cm in greatest dimension area of eburnation present. The remaining articular surfaces are tena-brown and diffusely granular. The underlying trabecular bone is yellow and hard. [employer] Clerk sections are submitted in one cassette, following decalcification. /02/21/2019 [facility]02/21/2019
== END 2019-02-22 13:35 | disposition home health service (06) | DRG 470 ==
LOC: FM/S 06:08
PROVIDERS: ADMIT Student in an Organized Health Care Education/Training Program; ATTEND Student in an Organized Health Care Education/Training Program
PROC: 8E0Y0CZ Robotic Assisted Procedure of Lower Extremity, Open Approach (ICD-10-PCS; 2019-02-20)
PROC: 0SRD0J9 Replacement of Left Knee Joint with Synthetic Substitute, Cemented, Open Approach (ICD-10-PCS; principal; 2019-02-20 08:58)
DX: M17.12 Unilateral primary osteoarthritis, left knee (principal); K21.9 Gastro-esophageal reflux disease without esophagitis
CPT/HCPCS: 36415; 73560-TC-LT-FY; 80048; 85027; 88304-TC; 88311-TC; 94760; 97116-GP; 97163-GP; J0131; J1100

== ENCOUNTER 2022-05-04 00:17 | Observation (INO) | payer OTHER ==
[2022-05-04 00:24] VITALS: BMI 33.3
[2022-05-04] MEDS ORDERED: NITROGLYCERIN SUBLINGUAL 1/200 0.3 MG BTL SL ONE (00:49)
[2022-05-04] MEDS ORDERED: NITROGLYCERIN SUBLINGUAL 1/150 0.4 MG TAB SL ONE (01:32)
[2022-05-04] MEDS ORDERED: ASPIRIN 325 MG ENTERIC COATED TABLET (FP) PO ONE (01:49)
[2022-05-04 02:14] LABS: BASO % 0.4 % (0-2.0); EOS % 3.4 % (0-4.5); HEMATOCRIT 40.7 % (35.4-49); HEMOGLOBIN 13.4 GM/dL (11.7-16.9); MCH 29.1 pg (25.7-33.7); MCHC 32.9 g/dl (32.0-35.9); MEAN CELL VOLUME 88.5 fl (80-96); MEAN PLT VOLUME 8.3 fl (7.5-11.1); MONO % 8.9 % (3.8-10.2); NEUT % 59.3 % (42.8-82.8); PLATELET COUNT 232 10^3/uL (134-434); RBC 4.59 M/mm3 (4.00-5.60); RDW 13.9 % (11.9-15.9); WHITE BLOOD COUNT 9.1 K/mm3 (4.0-10.0)
[2022-05-04] MEDS ORDERED: ASPIRIN 325 MG ENTERIC COATED TABLET (FP) ONE (02:14)
[2022-05-04 02:34] LABS: CALCIUM 8.4 mg/dL (8.5-10.1)
[2022-05-04 02:36] LABS: ALBUMIN 3.5 g/dl (3.4-5.0); BLOOD UREA NITROGEN 41.2 mg/dL (7-18)
[2022-05-04 02:40] LABS: BILIRUBIN,TOTAL 0.7 mg/dL (0.2-1); CREATININE 1.9 mg/dL (0.55-1.3); TOT PROT 6.3 g/dl (6.4-8.2)
[2022-05-04 02:44] LABS: N-TERMINAL BNP 128.3 pg/ml (5-450)
[2022-05-04] MEDS ORDERED: MAG HYDROX/AL HYDROX/SIMETH 30 ML UNIT-DOSE CUP PO ONE (06:21)
[2022-05-04] MEDS ORDERED: FAMOTIDINE 20 MG/50 ML IVPB 20 MG/50 ML MG IVPB ONE ×2 (06:21→06:26)
[2022-05-04] MEDS ORDERED: MAG HYDROX/AL HYDROX/SIMETH 30 ML UNIT-DOSE CUP ONE (06:26)
[2022-05-04] MEDS ORDERED: SODIUM CHLORIDE 1,000 ML IV SCH (06:30)
[2022-05-04] MEDS ORDERED: ACETAMINOPHEN 325 MG TABLET (FP) PO PRN (07:34)
[2022-05-04] MEDS ORDERED: ASPIRIN 81 MG CHEWABLE TABLETS ONE (09:50)
[2022-05-04] MEDS: ASPIRIN COATED 81 MG TABLET.EC PO SCH (09:56)
[2022-05-04] MEDS ORDERED: PANTOPRAZOLE 40 MG TABLET PO ONE (11:03)
[2022-05-04] MEDS: PANTOPRAZOLE 40 MG TABLET PO SCH (11:09)
[2022-05-04] MEDS: FLUoxetine HCL 20 MG CAPSULE PO SCH (11:38)
[2022-05-04] MEDS ORDERED: LOSARTAN POTASSIUM 50 MG TABLET ONE (13:23)
[2022-05-04] MEDS: LOSARTAN POTASSIUM 50 MG TABLET PO SCH (13:25)
[2022-05-04] MEDS ORDERED: HEPARIN NA (PORCINE) 5,000 UNITS/ML 1ML VIAL SQ SCH (14:00)
[2022-05-04] MEDS ORDERED: ATORVASTATIN CA 20 MG TABLET (FP) PO SCH ×2 (22:00)
[2022-05-05 01:51] VITALS: RESP 18
[2022-05-05 08:26] LABS: HEMATOCRIT 43.5 % (35.4-49); HEMOGLOBIN 14.2 GM/dL (11.7-16.9); MCH 29.3 pg (25.7-33.7); MCHC 32.7 g/dl (32.0-35.9); MEAN CELL VOLUME 89.5 fl (80-96); MEAN PLT VOLUME 8.4 fl (7.5-11.1); PLATELET COUNT 218 10^3/uL (134-434); RBC 4.86 M/mm3 (4.00-5.60); RDW 13.7 % (11.9-15.9)
[2022-05-05 08:37] LABS: CALCIUM 8.6 mg/dL (8.5-10.1)
[2022-05-05 08:38] LABS: BLOOD UREA NITROGEN 23.7 mg/dL (7-18); MAGNESIUM 2.1 mg/dL (1.8-2.4)
[2022-05-05 08:41] LABS: CREATININE 1.3 mg/dL (0.55-1.3); PHOSPHOROUS 3.5 mg/dL (2.5-4.9)
[2022-05-05] MEDS: LOSARTAN POTASSIUM 50 MG TABLET PO SCH (10:01)
[2022-05-05] MEDS ORDERED: REGADENOSON 0.4 MG/5 ML PRE-FILLED SYRINGE IVPUSH ONE ×2 (11:42→14:15)
[2022-05-05] MEDS: PANTOPRAZOLE 40 MG TABLET PO SCH (14:09)
[2022-05-05] MEDS: FLUoxetine HCL 20 MG CAPSULE PO SCH (14:09)
[2022-05-05] MEDS: ASPIRIN COATED 81 MG TABLET.EC PO SCH (14:10)
[2022-05-05 15:06] VITALS: BP 120/75; PULSE 65; TEMP 98.4
== END 2022-05-05 17:00 | disposition home or self-care (01) ==
LOC: JER 00:17 → INTOOBSV 04:51 → JERBED 04:51 → J4S 14:54
PROVIDERS: ADMIT Internal Medicine; ATTEND Internal Medicine
PROC: 3E033GC Introduction of Other Therapeutic Substance into Peripheral Vein, Percutaneous Approach (ICD-10-PCS; principal; 2022-05-04)
PROC: 3E0337Z Introduction of Electrolytic and Water Balance Substance into Peripheral Vein, Percutaneous Approach (ICD-10-PCS; 2022-05-04)
DX: R07.89 Other chest pain (principal); N18.9 Chronic kidney disease, unspecified; N17.9 Acute kidney failure, unspecified; G90.2 Horner's syndrome; E78.5 Hyperlipidemia, unspecified; K92.2 Gastrointestinal hemorrhage, unspecified; G47.33 Obstructive sleep apnea (adult) (pediatric); I10 Essential (primary) hypertension; M19.90 Unspecified osteoarthritis, unspecified site; N28.1 Cyst of kidney, acquired; Z87.891 Personal history of nicotine dependence; Z99.89 Dependence on other enabling machines and devices; Z98.84 Bariatric surgery status; Z96.653 Presence of artificial knee joint, bilateral
CPT/HCPCS: 0241U-QW; 36415; 71045-TC-FY; 71275-TC; 76775-TC; 78452-TC; 80048; 80053; 80061; 82550; 82570; 83036; 83735; 83880; 84100; 84156; 84443; 84484; 85025; 85027; 93005; 93010; 93017; 93306-TC; 96365; 96375; 99285-25; A9502; G0378; Q9967

== ENCOUNTER 2022-12-22 13:40 | Emergency (ER) | payer OTHER ==
[2022-12-22 13:54] VITALS: BP 152/80; PULSE 73; RESP 17; TEMP 97.9; BMI 33.2
[2022-12-22] MEDS ORDERED: ACETAMINOPHEN 500 MG TABLET (FP) PO ONE (14:07)
[2022-12-22] MEDS ORDERED: ACETAMINOPHEN 500 MG TABLET (FP) ONE (14:19)
== END 2022-12-22 15:38 | disposition home or self-care (01) ==
LOC: JERFT 13:40
DX: S61.112A Laceration without foreign body of left thumb with damage to nail, initial encounter (principal); W23.1XXA Caught, crushed, jammed, or pinched between stationary objects, initial encounter
CPT/HCPCS: 73130-TC-LT-FY; 73140-TC-LT-FY; 99283-25

== ENCOUNTER 2024-05-02 08:32 | Emergency (ER) | payer OTHER ==
[2024-05-02 08:49] VITALS: BP 138/81; PULSE 62; RESP 18; TEMP 97.6; BMI 34.5
[2024-05-02] MEDS ORDERED: METHOCARBAMOL 500 MG TABLET ONE (08:57)
[2024-05-02] MEDS ORDERED: diazePAM 5 MG TABLET ONE (08:58)
[2024-05-02] MEDS ORDERED: LIDOCAINE 5% TOPICAL PATCH ONE (08:58)
[2024-05-02] MEDS ORDERED: KETOROLAC TROMETHAMINE 30 MG/1 ML VIAL ONE (08:58)
[2024-05-02] MEDS: LIDOCAINE 5% TOPICAL PATCH TP ONE (09:09)
[2024-05-02] MEDS: KETOROLAC TROMETHAMINE 15 MG/ML VIAL IM ONE (09:10)
[2024-05-02] MEDS: diazePAM 5 MG TABLET PO ONE (09:10)
[2024-05-02] MEDS: METHOCARBAMOL 500 MG TABLET PO ONE (09:10)
[2024-05-02] MEDS ORDERED: LIDOCAINE PATCH REMOVAL MC SCH (22:00)
== END 2024-05-02 11:45 | disposition home or self-care (01) ==
LOC: JER 08:32
PROC: 3E0133Z Introduction of Anti-inflammatory into Subcutaneous Tissue, Percutaneous Approach (ICD-10-PCS; principal; 2024-05-02)
DX: M54.50 Low back pain, unspecified (principal); W17.89XA Other fall from one level to another, initial encounter
CPT/HCPCS: 72131-TC; 72192-TC; 99284-25

== ENCOUNTER 2024-05-03 19:48 | Inpatient (IN) | payer OTHER ==
[2024-05-03 20:10] VITALS: BMI 29.5
[2024-05-03] MEDS ORDERED: morphine SULFATE 4 MG/ML VIAL ONE (20:21)
[2024-05-03] MEDS ORDERED: LIDOCAINE 5% TOPICAL PATCH ONE (20:22)
[2024-05-03] MEDS: LIDOCAINE 5% TOPICAL PATCH TP ONE (20:43)
[2024-05-03] MEDS: morphine CARPU-JECT 4 MG/1 ML DISP.SYRIN IVPUSH ONE (20:43)
[2024-05-03 20:50] LABS: BASO % 0.3 % (0-2.0); EOS % 4.7 % (0-4.5); HEMATOCRIT 40.2 % (35.4-49); HEMOGLOBIN 13.4 GM/dL (11.7-16.9); LYMPH % 23.5 % (8-40); MCH 29.9 pg (25.7-33.7); MCHC 33.4 g/dl (32.0-35.9); MEAN CELL VOLUME 89.4 fl (80-96); MEAN PLT VOLUME 7.4 fl (7.5-11.1); MONO % 10.1 % (3.8-10.2); NEUT % 61.4 % (42.8-82.8); PLATELET COUNT 206 10^3/uL (134-434); RDW 13.9 % (11.9-15.9); WHITE BLOOD COUNT 8.6 K/mm3 (4.0-10.0)
[2024-05-03 20:58] LABS: INR 0.95 (0.83-1.09); PROTHROMBIN TIME (PATIENT) 10.9 SEC (9.7-13.0)
[2024-05-03 21:00] LABS: ACTIVATED PTT 28.1 SECONDS (25.2-36.5)
[2024-05-03] MEDS ORDERED: DEXAMETHASONE SOD PHOSPHATE 10 MG/1 ML VIAL ONE (21:02)
[2024-05-03] MEDS: DEXAMETHASONE SOD PHOSPHATE 10 MG/1 ML VIAL IVPUSH ONE (21:13)
[2024-05-03 21:17] LABS: CHLORIDE 108 mmol/L (98-107); SODIUM 141 mmol/L (136-145)
[2024-05-03 21:18] LABS: CALCIUM 8.6 mg/dL (8.5-10.1)
[2024-05-03 21:19] LABS: ALBUMIN 3.7 g/dl (3.4-5.0); ANION GAP 6 mmol/L (4-13); BLOOD UREA NITROGEN 24.3 mg/dL (7-18); CO2 27 mmol/L (21-32); GLUCOSE,RANDOM 97 mg/dL (74-106)
[2024-05-03 21:22] LABS: CREATININE 1.5 mg/dL (0.55-1.3); SGOT/AST 12 U/L (15-37); SGPT/ALT 21 U/L (13-61)
[2024-05-03 21:24] LABS: TOT PROT 6.1 g/dl (6.4-8.2)
[2024-05-03 21:25] LABS: ALK PHOS 67 U/L (45-117)
[2024-05-03 21:45] LABS: ERYTHROCYTE SEDIMENTATION RATE 8 mm/hr (0-20)
[2024-05-03] MEDS: ACETAMINOPHEN 500 MG TABLET (FP) PO ONE (23:55)
[2024-05-03] MEDS: PREGABALIN 50 MG CAPSULE PO ONE (23:56)
[2024-05-04] MEDS ORDERED: traZODone HCL 50 MG TABLET (FP) PO PRN (00:31)
[2024-05-04] MEDS: ACETAMINOPHEN 500 MG TABLET (FP) PO SCH (05:46)
[2024-05-04] MEDS ORDERED: HEPARIN NA (PORCINE) 5,000 UNITS/ML 1ML VIAL SQ SCH (06:00)
[2024-05-04 08:44] LABS: HEMATOCRIT 40.6 % (35.4-49); HEMOGLOBIN 13.8 GM/dL (11.7-16.9); MCH 30.5 pg (25.7-33.7); MEAN CELL VOLUME 89.5 fl (80-96); MEAN PLT VOLUME 8.1 fl (7.5-11.1); PLATELET COUNT 216 10^3/uL (134-434); RBC 4.54 M/mm3 (4.00-5.60); RDW 13.4 % (11.9-15.9); WHITE BLOOD COUNT 6.6 K/mm3 (4.0-10.0)
[2024-05-04 08:59] LABS: POTASSIUM 4.2 mmol/L (3.5-5.1)
[2024-05-04 09:01] LABS: ALBUMIN 3.4 g/dl (3.4-5.0); BLOOD UREA NITROGEN 24.9 mg/dL (7-18); CALCIUM 8.4 mg/dL (8.5-10.1)
[2024-05-04 09:04] LABS: CREATININE 1.6 mg/dL (0.55-1.3); PHOSPHOROUS 3.6 mg/dL (2.5-4.9)
[2024-05-04 09:06] LABS: BILIRUBIN,TOTAL 1.2 mg/dL (0.2-1); TOT PROT 6.3 g/dl (6.4-8.2)
[2024-05-04] MEDS: PREGABALIN 25 MG CAPSULE PO SCH (10:57)
[2024-05-04] MEDS: PANTOPRAZOLE 40 MG TABLET PO SCH (10:57)
[2024-05-04] MEDS: ENOXAPARIN NA (PORCINE) 40 MG/0.4 ML DISP.SYRIN SQ SCH (10:57)
[2024-05-04] MEDS: diazePAM 5 MG TABLET PO SCH (10:59)
[2024-05-04] MEDS: FLUoxetine HCL 20 MG CAPSULE PO SCH (11:16)
[2024-05-04] MEDS: DOCUSATE SODIUM 100 MG CAPSULE (FP) PO PRN (14:06)
[2024-05-04] MEDS: FLU VACCINE (FLULAVAL) PF 45 MCG/0.5 ML SYRINGE 2024-2025 IM ONE (17:49)
[2024-05-04] MEDS: ATORVASTATIN CA 20 MG TABLET (FP) PO SCH (21:26)
[2024-05-04] MEDS: POLYETHYLENE GLYCOL (HEALTHYLAX) 3350 17 GM PACKET PO SCH (21:27)
[2024-05-04] MEDS: SENNOSIDES 8.8 MG/5 ML SYRUP PO SCH (21:29)
[2024-05-05 13:19] VITALS: BP 162/88; PULSE 63; RESP 18; TEMP 97.9
== END 2024-05-05 16:33 | disposition home or self-care (01) | DRG 552 ==
LOC: JER 19:48 → JERBED 21:31 → J7W 23:35 → OBSVTOIN 23:40
PROVIDERS: ADMIT Internal Medicine; ATTEND Nurse Practitioner
DX: M54.50 Low back pain, unspecified (principal); W01.0XXA Fall on same level from slipping, tripping and stumbling without subsequent striking against object, initial encounter; N18.9 Chronic kidney disease, unspecified; E78.5 Hyperlipidemia, unspecified; N40.0 Benign prostatic hyperplasia without lower urinary tract symptoms; G47.33 Obstructive sleep apnea (adult) (pediatric); F32.A Depression, unspecified; Y92.098 Other place in other non-institutional residence as the place of occurrence of the external cause; Y99.9 Unspecified external cause status
CPT/HCPCS: 36415; 80053; 83735; 84100; 85025; 85027; 85610; 85651; 85730; 86140; 90656; 93005; 93010; 97116-GP; 97161-GP; 99285-25; G0008; G0378; J1100